=== PATIENT | male | born 2000 | race Caucasian/White ===

== ENCOUNTER 2023-08-13 13:14 | Outpatient (CLI) | payer OTHER, SELFPAY ==
--- NOTE | ~2023-08-13 | CT_ITS ---
CT sinus wo con Ordering provider: Fransico Bhat M.D. History: . ethmoid polyps . Comparison: None. Technique: Thin slice Scans CT of the paranasal sinuses was performed with coronal and sagittal refor matted images. No IV contrast. . Automated exposure control and iterative reconstruction technique w ere employed. The dose-length product was 395.42 mGy-cm. Findings: NASAL SEPTUM: Mild left nasal septal deviation. Polyp in the left nasal cavity is not excluded. OSTEOMEATAL UNITS: Bilaterally patent. NASAL TURBINATES AND NASOPHARYNX: Normal. PARANASAL SINUSES: Well aerated. VISUALIZED MASTOIDS: Normal as visualized. BONES: Normal. SUPERFICIAL SOFT TISSUES/VISUALIZED BRAIN PARENCHYMA: Normal. IMPRESSION: Possible polyp in the left nasal cavity. Other appearances are unremarkable. Reviewed, dictated and finalized at location A.
== END 2023-08-13 13:15 ==
LOC: GOSHIMG 13:15
PROVIDERS: PCP Otolaryngology; Visit Provider Otolaryngology
DX: J32.0 Chronic maxillary sinusitis (principal); J33.8 Other polyp of sinus; R04.0 Epistaxis
CPT/HCPCS: 70486